=== PATIENT | female | born 1950 | race Asian ===

== ENCOUNTER 2021-08-19 10:17 | Outpatient (CLI) | payer MEDICARE | END 2021-08-19 10:18 | disposition home or self-care (01) | LOC: CSHMAMMO 10:17 | PROVIDERS: ATTEND Family Medicine | DX: Z12.31 Encounter for screening mammogram for malignant neoplasm of breast (principal) | CPT/HCPCS: 77063; 77067 ==

== ENCOUNTER 2022-12-30 08:47 | Outpatient (CLI) | payer OTHER | END 2022-12-30 08:48 | disposition home or self-care (01) | LOC: CSHMAMMO 08:47 | PROVIDERS: ATTEND Family Medicine | DX: Z12.31 Encounter for screening mammogram for malignant neoplasm of breast (principal) | CPT/HCPCS: 77063; 77067 ==